=== PATIENT | female | born 1955 | race Hispanic/Latino ===

== ENCOUNTER 2024-11-21 04:13 | Inpatient (IN) | payer MEDICARE ==
[2024-11-21] VITALS (8 sets, daily range): BP systolic 132–169; BP diastolic 79–95; PULSE 62–77; RESP 18–22; TEMP 97–98.7; O2SAT 95–100
[~2024-11-21] VITALS: Ht 162.6 cm; Wt 82.6 kg
[2024-11-21 04:31] LABS: BASOPHILS % 0.9 % (0.0-1.0); EOSINOPHILS % 3.1 % (0.0-6.0); LYMPHOCYTES % 35.9 % (18.0-39.1); MONOCYTES % 6.1 % (4.4-11.3); NEUTROPHILS % 53.8 % (38.7-80.0); RED CELL DISTRIBUTION WIDTH 14.0 % (11.7-14.4)
[2024-11-21] MEDS: ENOXAPARIN INJ 80 MG/0.8 ML SYR SC STA (04:35)
[2024-11-21 04:36] LABS: INR 0.9
[2024-11-21 04:45] LABS: EST GLOMERULAR FILTRATION RATE 73.0 ML/MIN (>=60)
[2024-11-21] MEDS ORDERED: ONDANSETRON HCL INJ 2MG/ML 2ML 2 MG/ML VIAL IV PRN (05:15)
[2024-11-21] MEDS ORDERED: Morphine 4mg INJECTION 4 MG/ML INJ IV PRN (05:15)
[2024-11-21] MEDS ORDERED: SODIUM CHLORIDE FLUSH 10 ML SYR INJ PRN (05:15)
[2024-11-21] MEDS ORDERED: IOPAMIDOL 370 MG/ML 100 ML INFUS..BTL INJ ONE (08:03)
[2024-11-21] MEDS: LOSARTAN POTASSIUM 25 MG TAB PO SCH (09:47)
[2024-11-21] MEDS: METOPROLOL SUCCINATE 25 MG TAB XL PO SCH ×2 (09:48→21:39)
[2024-11-21] MEDS: ASPIRIN 81 MG ENTERIC COATED PO SCH (09:48)
[2024-11-21] MEDS: ENOXAPARIN SODIUM INJ 100 MG/ML SYR SC SCH (17:09)
[2024-11-21] MEDS: HYDRALAZINE HCL 20 MG/ML VIAL IV PRN (21:09)
[2024-11-22] VITALS (9 sets, daily range): BP systolic 139–164; BP diastolic 74–96; PULSE 61–72; RESP 18; TEMP 97.6–98.5; O2SAT 97–98
[2024-11-22 08:20] LABS: BASOPHILS % 1.1 % (0.0-1.0); EOSINOPHILS % 3.2 % (0.0-6.0); LYMPHOCYTES % 43.0 % (18.0-39.1); MONOCYTES % 8.0 % (4.4-11.3); NEUTROPHILS % 44.5 % (38.7-80.0); RED CELL DISTRIBUTION WIDTH 14.1 % (11.7-14.4)
[2024-11-22] MEDS: LOSARTAN POTASSIUM 100 MG TAB PO SCH (08:25)
[2024-11-22 08:42] LABS: CHOL/HDL RATIO 3.4 (3.0-3.6); EST GLOMERULAR FILTRATION RATE 67.0 ML/MIN (>=60); LDL CHOLESTEROL 103.0 MG/DL (60-130)
[2024-11-22] MEDS ORDERED: LEXAPRO10 MG PO (10:36)
[2024-11-22] MEDS ORDERED: FAMOTIDINE20 MG PO (10:36)
[2024-11-22] MEDS ORDERED: METOPROLOL SUCC25 MG PO (10:36)
[2024-11-22] MEDS ORDERED: BUSPIRONE HCL5 MG PO (10:36)
[2024-11-22] MEDS ORDERED: BUSPIRONE HCL10 MG PO (10:36)
[2024-11-22] MEDS ORDERED: ROSUVASTATIN CA40 MG PO (10:36)
[2024-11-22] MEDS ORDERED: LOSARTAN POTASS25 MG PO (10:36)
[2024-11-22 16:02] LABS: LACTATE DEHYDROGENASE 353.0 IU/L (125-220)
[2024-11-22 16:25] LABS: HCG,QUANTITATIVE 2.86 mIU/mL (0-10); T3 UPTAKE 28.0 % (22.5-37.0)
[2024-11-22] MEDS: LOSARTAN POTASSIUM 25 MG TAB PO SCH (20:40)
[2024-11-22] MEDS ORDERED: COZAAR25 MG PO (20:47)
[2024-11-22] MEDS ORDERED: ASPIRIN EC81 MG PO (20:47)
[2024-11-22] MEDS ORDERED: TOPROL XL25 MG PO (20:47)
== END 2024-11-22 21:13 | disposition home or self-care (01) | DRG 305 ==
LOC: ER 04:18 → EDBD 05:12 → ERHOLD 05:12 → MED/SURG2 07:00
PROVIDERS: ADMIT Internal Medicine; ATTEND Internal Medicine
DX: I16.0 Hypertensive urgency (principal); I48.19 Other persistent atrial fibrillation; G95.9 Disease of spinal cord, unspecified; I10 Essential (primary) hypertension; R07.89 Other chest pain; R22.2 Localized swelling, mass and lump, trunk; K76.89 Other specified diseases of liver; M89.9 Disorder of bone, unspecified; R59.0 Localized enlarged lymph nodes; I70.0 Atherosclerosis of aorta; I87.2 Venous insufficiency (chronic) (peripheral); Z79.899 Other long term (current) drug therapy
CPT/HCPCS: 36415; 71045; 71260; 80053; 80061; 82550; 82948; 83615; 83880; 84436; 84443; 84479; 84484; 84702; 85025; 85610; 85730; 93005; 93306; 99284; J0360; J1650; Q9967